=== PATIENT | female | born 1990 | race Caucasian/White ===

== ENCOUNTER 2023-09-26 17:15 | Emergency (ER) | payer OTHER, SELFPAY ==
--- NOTE | ~2023-09-26 | XR_ITS ---
XR abdomen/kub 1V 09/26/2023 18:54 INDICATION: Bloating and abdominal pain TECHNIQUE: KUB COMPARISON: None FINDINGS: Bowel gas pattern is normal. Moderate colonic fecal loading. There is no evidence of free air, mass, organomegaly, ascites or obstruction. No abnormal calculi ar e seen. The bones appear intact. IMPRESSION: 1: No acute abdominal abnormality identified. Reviewed, dictated and finalized at location A. RIAL HANDLING TECHNICIAN
[2023-09-26 17:30] VITALS: BP 119/77; PULSE 97; RESP 16; TEMP 36.6; O2SAT 100
--- NOTE | 2023-09-26 18:41 | ED.GENADULT ---
HPI - General Adult General Chief complaint: Abdominal Pain Stated complaint: Stomach pain Time Seen by Provider: 09/26/23 18:30 Source: patient, RN notes reviewed and old records reviewed Mode of arrival: ambulatory Limitations: no limitations History of Present Illness HPI narrative: 33-year-old female who presents to [facility] with complaints of feeling bloated since 0300 with some upper intermittent epigastric discomfort all day. Patient reports that she has taken some Phazyme and some Pepto Bismol without relief and has had 3 bowel movements today with continued feelings of bloated with colicky upper epigastric discomfort. Patient reports no nausea or vomiting or any diarrhea no fevers ,Patient reports that she has been burping and passing flatus reports pain 4/10. Patient denies any burning with urination, no urinary urgency or frequency or any back pain. MD complaint: abdominal bloating, upper epigastric abdominal pain Onset (ago): hour(s) (0) Location: abdomen (epigastric) Severity scale (1-10): 4 Quality: aching Pain Consistency: colicky Treatments prior to arrival: other (pepto Bismol, Phazyme) Related Data Home Medications Medication Instructions Recorded Confirmed cetirizine 10 mg tablet (Zyrtec) 10 mg PO DAILY 09/26/23 09/26/23 Allergies Allergy/AdvReac Type Severity Reaction Status Date / Time Penicillins Allergy Unknown HIVES Verified 09/26/23 17:36 Review of Systems Review of Systems: CONSTITUTIONAL: Denies fever, chills, or sweats. ENT: Denies rhinorrhea, congestion, sore throat, or otalgia. CARDIOVASCULAR: Denies chest pain, palpitations, or edema. RESPIRATORY: Denies cough or dyspnea. GASTROINTESTINAL: colicky upper epigastric abdominal pain, with feelings of bloating, no nausea, vomiting, diarrhea. GENITOURINARY: Denies dysuria or hematuria. SKIN: Denies rash or itching. MUSCULOSKELETAL: Denies back pain, joint pain, or myalgia. NEUROLOGIC: Denies headache, numbness, or weakness. All systems reviewed & are unremarkable except as noted in HPI and below PMFSH Past Medical History Medical History (Updated 09/27/23 @ 12:39 by Shabnam Tavares NP) Asthma IBS (irritable bowel syndrome) Surgical History Surgical History (Updated 09/27/23 @ 12:27 by Shabnam Tavares NP) History of tonsillectomy Previous section Social History Social History Smoking status: Never smoker Smoking end date: 10/10/18 Alcohol intake: never Substance use: never Lack of Transportation: No Lack of Food: Never True Current Housing: I Have Housing Concerned About Future Housing: No Difficulty Paying Gas/Electric Bills: No Difficulty Paying for Meds: No Currently Unemployed: No Education: Trade/Vocational Certificate Difficulty w/ Childcare or Family Care: No Comments At time of signature, agree with nursing past medical, surgical, social and family history. There is no relevant family history pertinent to the presenting complaint Exam Narrative: GENERAL: Well-appearing, well-nourished, and in no acute distress. HEAD: Normocephalic, atraumatic. EYES: PERRLA, conjunctivae clear, and EOMI. ENT: Nares clear. Mucous membranes moist. Oropharynx without edema, erythema, or lesions. Tonsils not enlarged and without exudate. NECK: Supple. No lymphadenopathy CHEST: Speaks in full sentences. No respiratory distress.SAO2 100% on room air HEART: Regular rate and rhythm. ABDOMEN: Soft, flat, nondistended. No guarding, rebound tenderness, or rigid. No pulsatilla masses. Bowel sounds present in all four quadrants. No organomegaly. Negative Rodriguez?s sign. No periumbilical tenderness. No Supra public tenderness or distension.No McBurney point tenderness. Good femoral pulses bilaterally. No hernia noted. No scars or surface trauma. SKIN: Warm, dry, no rash. NEURO:? Alert and oriented x3. PSYCH: Normal mood and
== END 2023-09-26 19:45 | disposition home or self-care (01) ==
PROVIDERS: Emergency Provider Registered Nurse
DX: R10.13 Epigastric pain (principal)
CPT/HCPCS: 74018; 99213; G0463

== ENCOUNTER 2023-10-20 17:56 | Emergency (ER) | payer OTHER, SELFPAY ==
--- NOTE | 2023-10-20 17:57 | ECG_ITS ---
Measurements Intervals [place] Rate: 117 P: 61 OH: 136 QRS: 84 QRSD: 88 T: 70 QT: 310 QTc: 433 Interpretive Statements SINUS TACHYCARDIA BORDERLINE ST-T WAVE ABNORMALITY- DIFFUSE LEADS BASELINE WANDER- AVR, AVL, AVF, V4-V6 ABNORMAL ECG NO PREVIOUS ECG AVAILABLE FOR COMPARISON Electronically Signed On 10-20-2023 19:11:24 SANDBLASTER GLASS by Trenton Renya D.O.
[2023-10-20 18:05] VITALS: BP 128/92; PULSE 110; RESP 16; TEMP 36.4; O2SAT 96
== END 2023-10-21 02:47 | disposition left against medical advice (07) ==
PROVIDERS: Emergency Provider Emergency Medicine
DX: R10.10 Upper abdominal pain, unspecified (principal)
CPT/HCPCS: 93005; 99199

== ENCOUNTER 2023-11-01 09:08 | Outpatient (CLI) | payer OTHER, SELFPAY ==
[2023-11-01 09:34] LABS: Hematocrit 39.8 % (37.0-47.0); Hemoglobin 13.1 g/dL (12.0-15.0); Mean Corpuscular HGB Conc 32.9 g/dl (32-36); Mean Corpuscular Hemoglobin 28.1 pg (26-34); Mean Corpuscular Volume 85.4 fl (80-100); Mean Platelet Volume 8.8 fl (7.4-10.4); Platelet Count Result 321 k/mm3 (150-375); Red Blood Count 4.66 M/mm3 (4.2-5.4); White Blood Count 4.7 K/mm3 (4.5-10.0)
[2023-11-01 09:45] LABS: Alanine Aminotransferase 112 U/L (6-35); Albumin Level 4.4 g/dL (3.5-5.1); Alkaline Phosphatase 84 U/L (38-126); Anion Gap 9 mmol/L (8-16); Aspartate Amino Transferase 71 U/L (14-36); Bilirubin,Total 0.5 mg/dL (0.2-1.3); Blood Urea Nitrogen 15 mg/dL (7-17); Calcium 9.6 mg/dL (8.4-10.2); Carbon Dioxide 26 mmol/L (22-30); Chloride 105 mmol/L (98-107); Estimated Glomerular Filt Rate > 60; Glucose 76 mg/dL (65-110); Potassium 4.3 mmol/L (3.4-5.0); Sodium 140 mmol/L (137-145)
== END 2023-11-01 09:09 | disposition home or self-care (01) ==
LOC: ANHLAB 09:09
PROVIDERS: Visit Provider Nurse Practitioner Family
DX: R10.9 Unspecified abdominal pain (principal)
CPT/HCPCS: 36415; 80053; 85027

== ENCOUNTER 2023-11-08 09:36 | Outpatient (CLI) | payer OTHER, SELFPAY ==
--- NOTE | ~2023-11-08 | NM_ITS ---
EXAMINATION: NM hepatobiliary wo pharm DATE: 11/08/2023 12:03 INDICATION: Unspecified abdominal pain. COMPARISON: None. TECHNIQUE: 4.4 mCi Tc-99m mebrofenin (Choletec) was administered intravenously. Scintigraphic images of the abdomen were obtained for one hour. Then, the patient drank 8 oz Ensure, and imaging was cont inued for 60 minutes. FINDINGS: There is normal clearance of radiotracer from the blood pool. There is homogeneous tracer u ptake by the liver. Activity progresses to the bowel and gallbladder. Gallbladder ejection fraction (GBEF) was 20%. Note that with this technique, normal GBEF >= 33%. IMPRESSION: 1. Low gallbladder ejection fraction, consistent with gallbladder dysfunction and/or chronic cholecy stitis. Reviewed, dictated and finalized at location A. C DEPARTMENT CHAIR IMPRESSION: 1. Low gallbladder ejection fraction, consistent with gallbladder dysfunction and/or chronic cholecystitis.
== END 2023-11-08 09:37 | disposition home or self-care (01) ==
LOC: ANHIMG 09:37
PROVIDERS: Visit Provider Nurse Practitioner Family
DX: R10.9 Unspecified abdominal pain (principal)
CPT/HCPCS: 78226; A9537

== ENCOUNTER 2023-11-14 08:44 | Outpatient (CLI) | payer OTHER, SELFPAY ==
--- NOTE | ~2023-11-14 | US_ITS ---
EXAMINATION: US abdomen limited DATE: 11/14/2023 09:32 INDICATION: R10.9 - Unspecified abdominal pain TECHNIQUE: Multiple grayscale and Doppler ultrasound images of limited portions of the abdomen were o btained. COMPARISON: Hepatobiliary scan 11/08/2023. FINDINGS: The visualized portions of the pancreas are normal. The liver is mildly enlarged, with slig htly increased echogenicity. No surface nodularity. Normal hepatopetal flow in the main portal vein. Multiple gallstones, no wall thickening or pericholecystic fluid. The common bile duct measures 6 mm. There was no sonographic Rodriguez sign. IMPRESSION: Echogenic liver, most commonly due to steatosis but also can be seen with hepatitis and fibrosis. Cholelithiasis without sonographic evidence of cholecystitis. Reviewed, dictated and finalized at location K. SURFACER JEWEL IMPRESSION: Echogenic liver, most commonly due to steatosis but also can be seen with hepat itis and fibrosis. Cholelithiasis without sonographic evidence of cholecystitis.
== END 2023-11-14 08:45 | disposition home or self-care (01) ==
PROVIDERS: Visit Provider Nurse Practitioner Family
DX: R10.9 Unspecified abdominal pain (principal); K80.20 Calculus of gallbladder without cholecystitis without obstruction
CPT/HCPCS: 76705

== ENCOUNTER 2023-11-17 07:35 | Outpatient (CLI) | payer OTHER, SELFPAY ==
[2023-11-17 08:14] LABS: Alanine Aminotransferase 21 U/L (6-35); Albumin Level 4.5 g/dL (3.5-5.1); Alkaline Phosphatase 86 U/L (38-126); Amylase 90 U/L (30-110); Anion Gap 6 mmol/L (8-16); Aspartate Amino Transferase 22 U/L (14-36); Bilirubin Indirect 0.2 mg/dL (0-1.1); Bilirubin,Total 0.5 mg/dL (0.2-1.3); Blood Urea Nitrogen 15 mg/dL (7-17); Calcium 9.9 mg/dL (8.4-10.2); Carbon Dioxide 27 mmol/L (22-30); Chloride 106 mmol/L (98-107); Estimated Glomerular Filt Rate > 60; Glucose 95 mg/dL (65-110); Lipase 172 U/L (23-300); Potassium 4.4 mmol/L (3.4-5.0); Sodium 139 mmol/L (137-145)
== END 2023-11-17 07:36 | disposition home or self-care (01) ==
PROVIDERS: Visit Provider Surgery
DX: K80.10 Calculus of gallbladder with chronic cholecystitis without obstruction (principal)
CPT/HCPCS: 36415; 80053; 82150; 82248; 83690

== ENCOUNTER 2023-11-21 01:48 | Day surgery (SDC) | payer OTHER, SELFPAY ==
[2023-11-16 15:13] VITALS: BMI 29.8
--- NOTE | 2023-11-16 15:33 | SUR.PREOP ---
Report to the Outpatient Waiting Room, entrance under the green pavilion located off [facility], at time 1130 on date 11/21/23. Planned Procedure Time: 1330. Time changes happen often and if your time is changed the preop area will call you the afternoon before. - You and your visitor will be asked to self-screen and do not enter if you have any COVID symptoms. - A mask is optional within the hospital at this time. Patients may have clear liquids (water, carbonated beverages, clear teas, apple juice) until 3 hours prior to surgery with a maximum of 20 ounces. - No food from midnight until time of surgery - Infants may have breast milk until 4 hours before surgery, infant formula 6 hours prior to surgery. - Children will be allowed to drink immediately following surgery. If applicable, please bring a bottle or sippy cup to assist with drinking. Juice, water, soda, and popsicles are readily available. For infants on formula, please bring formula the day of surgery. Pacifiers are allowed. Take the following medications with a SIP of water the morning of surgery: N/A DO NOT STOP ANY OF YOUR OTHER PRESCRIPTION MEDICATIONS PRIOR TO SURGERY ?EXCEPT THE FOLLOWING Medications to discontinue per physician N/A Date to take last dose N/A Please no make-up, nail kuwaiti, hairspray, perfume, deodorant, or body powder the day of surgery. No jewelry (including any body piercings) or valuables the day of surgery, leave them at home. Please take a shower or bath the night before, or the morning of, surgery with an antibacterial soap. Wear comfortable, loose fitting clothing. Children are encouraged to wear pajamas. - Jewelry must be removed prior to entering the operating room. Rings and piercings that are not removed may be cut off. - The hospital will not accept responsibility for valuables. - Please leave all valuables, including medications, at home the day of surgery. If you are going home after surgery, a licensed limousine driver must drive you home. - NO public transportation without another adult if you receive anesthesia. - We recommend that an adult stay with you for 24 hours following discharge. - We also recommend that you do not drive, make important decision, drink alcoholic beverages, or take any drugs that were not prescribed by your health care provider for at least 24 hours after your discharge time. For Pediatric surgeries, we recommend two adults accompany the child home. Follow any additional instructions given to you from your surgeon. If you or anyone in your household have experienced Covid symptoms in the past week, please notify your surgeon or the nurse liaison at the phone number below for possible testing. Telephone instructions given to MARTHA ESCAMILLA and asked if any additional questions and then verbalized understanding. Patient advised to call surgeon office or pre surgery nurse liaison [phone] if any additional questions.
[2023-11-21] VITALS (8 sets, daily range): BP systolic 97–120; BP diastolic 46–78; PULSE 83–108; RESP 12–20; TEMP 36.4–36.9; O2SAT 99–100
--- NOTE | 2023-11-21 08:22 | P.PNAN_ITS ---
Anes - Initial Pre Proc Eval Procedure: Operation Date: 11/21/23 13:30 Proposed Procedures p Laparoscopic Cholecystectomy - Azeb Adames MD Date/Time: 11/21/23 08:22 Surgeon: Azeb Adames MD Pre Op Diagnosis: chronic calculous cholecystitis Patient Data Age: 33 Gender: F Height: 1.57 m Weight: 73.94 kg Allergies Allergy/AdvReac Type Severity Reaction Status Date / Time cefdinir Allergy Unknown Hives Verified 11/21/23 12:40 Penicillins Allergy Unknown HIVES Verified 11/21/23 12:40 Home Medications Medication Instructions Recorded Confirmed Type albuterol sulfate 90 mcg/actuation 1 inh inhalation Q4H #8.5 grams 03/03/23 11/18/23 Rx aerosol inhaler cetirizine 10 mg tablet (Zyrtec) 10 mg PO DAILY 09/26/23 11/18/23 History budesonide-formoterol HFA 80 1 inh inhalation TID 11/10/23 11/18/23 History mcg-4.5 mcg/actuation aerosol inhaler (Symbicort) Patient hx anesthesia problems: none Family hx anesthesia problems: none Results Review: All pre-operative results and documents have been reviewed as part of the pre- operative evaluation. [facility] Past Medical History Medical History (Updated 11/16/23 @ 10:36 by Carolynn Sandoval [facility]) Asthma Biliary dyskinesia IBS (irritable bowel syndrome) RUQ pain Surgical History Surgical History History of tonsillectomy History of tubal ligation Previous section Family History Family History Father Hypertension Other Cancer Diabetes mellitus Social History Social History Smoking status: Never smoker Smoking end date: 10/10/18 Alcohol intake: never Substance use: never Lack of Transportation: No Lack of Food: Never True Current Housing: I Have Housing Concerned About Future Housing: No Difficulty Paying Gas/Electric Bills: No Difficulty Paying for Meds: No Currently Unemployed: No Education: Trade/Vocational Certificate Difficulty w/ Childcare or Family Care: No Living arrangements: with family Spiritual care concerns: No Anes - Eval Final PreProcedure Day of Procedure 11/21/23 08:22 Patient weight: overweight Heart: regular rate and rhythm Lungs: clear to auscultation Airway: Mallampati scale class II Neurological: alert and oriented Last oral intake: >/= 8 hours ASA classification: II Emergent: no Anesthetic plan: proceed Anesthesia type and monitoring: general ETT and standard monitoring Results Review: All pre-operative results and documents have been reviewed as part of the pre- operative evaluation. Informed Consent: The patient's anesthetic plan and its attendant risks and benefits were discussed with the patient/family/POA. Questions were solicited and answers provided to the satisfaction of the patient/family/POA.
--- NOTE | 2023-11-21 12:23 | WPDHPUPDATE1 ---
History and Physical Update Update Date/Time: 11/21/23 12:23 History and Physical has been reviewed, including an updated exam of the patient. There are NO changes in the patient's condition. Risks, benefits, and alternatives have been discussed and questions answered. Patient agrees to proceed with procedure. will proceed with laparoscopic cholecystectomy
[2023-11-21] MEDS: LACTATED RINGERS 1,000 ML 30 ML IV CONT ×2 (12:30→16:36)
[2023-11-21] MEDS: ACETAMINOPHEN 500 MG TABLET 1000 MG PO (12:30)
[2023-11-21] MEDS: KETOROLAC 15 MG/ML VIAL (*BKC) IV PUSH (12:30)
[2023-11-21] MEDS: CLINDAMYCIN 900 MG/D5W 50 ML 900 MG/50 ML PIGGYBACK 50 MG IVPB (14:01)
[2023-11-21] MEDS: BUPIVACAINE/EPINEPHRINE 0.5% 30 ML VIAL INFILTRATE (14:01)
--- NOTE | 2023-11-21 14:48 | W.PM.PROC2 ---
Procedure Note - Detailed Date of Procedure 11/21/23 Pre-op Diagnosis chronic calculous cholecystitis Post-op Diagnosis Same Procedure Performed Laparoscopic cholecystectomy Surgeon Azeb Adames MD Anesthesia General Indications 33-year-old female presented to the office complaining of postprandial right upper quadrant abdominal pain associated with nausea and vomiting. Workup including imaging significant for cholecystitis, cholelithiasis. Findings Cholecystitis with cholelithiasis Description of Procedure The patient was taken to the operating room placed in the supine position. After adequate induction of general anesthesia, the patient was prepped and draped in normal sterile fashion. A time-out was then performed to verify the patient's identity as well as the procedure being performed. I then made a 5 mm incision in the infraumbilical region. Through this, a Veress needle was placed into the peritoneal cavity and CO2 gas was then insufflated. After adequate pneumoperitoneum was achieved, the Veress needle was removed and a 5 mm optiview trocar was placed through this incision under direct visualization. I then placed the laparoscope through this trocar site and under direct visualization placed a further 12 mm subxiphoid port as well as 2 additional 5 mm ports in the right upper abdomen. The gallbladder was then identified and was noted to be moderately inflamed, distended, and full of gallstones. I was able to place a grasper at the dome of the gallbladder and this was retracted anterior and cephalad up over the liver. A 2nd retractor was then placed at the infundibulum and retracted laterally, this allowed visualization of the triangle of Calot. I then was able to visualize the cystic duct in its entirety from its proximal insertion into the gallbladder, to its distal junction with the common hepatic/common bile duct junction. At this point, I carefully skeletonized the proximal cystic duct with the [place] dissector. I then clipped and transected the proximal cystic duct. Next I visualized the cystic artery. Again the artery was skeletonized, clipped, and transected. I then used the Bovie cautery to take down the peritoneal attachments of the gallbladder off the liver bed. Once the gallbladder specimen was completely detached, an endo-pouch was placed through the 12 mm port site. I then placed the gallbladder specimen into the Endo pouch and removed the endo-pouch from the 12 mm port site. The specimen will now be sent to pathology for further review. I then copiously irrigated the right upper quadrant. Hemostasis was noted in the liver bed, the clips were noted to be in good position on both the cystic duct stump and the cystic artery stump. No other pathology was noted in the right upper quadrant. I then moved the laparoscope to the subxiphoid port. No iatrogenic injury or other pathology was noted in the lower abdomen. I then closed the 12 mm trocar site under direct visualization using the Guillermo cone and 0 Vicryl suture. At this point, the abdomen was desufflated and all ports removed. All port sites were then closed with 4.O Monocryl subcuticular sutures. Dermabond was placed on each incision. The patient tolerated the procedure well, was extubated in the operating room postoperative and will be transferred to the recovery room in stable condition Estimated Blood Loss 5 Drains No Packing No Pathology Yes Complications No immediate complications Condition Stable Disposition PACU [facility] Billing Surgery - Charge Forward: Surgery Billing
[2023-11-21] MEDS: ONDANSETRON INJ 4 MG/2 ML VIAL IV PUSH (16:11)
== END 2023-11-21 17:15 | disposition home or self-care (01) ==
PROVIDERS: Visit Provider Surgery
PROC: 0FT44ZZ Resection of Gallbladder, Percutaneous Endoscopic Approach (ICD-10-PCS; CPT 47562; principal; 2023-11-21 13:30)
DX: K80.10 Calculus of gallbladder with chronic cholecystitis without obstruction (principal); J45.909 Unspecified asthma, uncomplicated; K58.9 Irritable bowel syndrome, unspecified; K82.8 Other specified diseases of gallbladder; Z79.51 Long term (current) use of inhaled steroids; Z98.890 Other specified postprocedural states; Z80.9 Family history of malignant neoplasm, unspecified
CPT/HCPCS: 47562; 88304; A9270; J1100; J1170; J1885; J2250; J2405; J2704; J3010; J7030; J7120